=== PATIENT | male | born 1970 | race Native Hawaiian/Other Pacific Islander ===

== ENCOUNTER 2021-11-19 20:22 | Emergency (ER) | payer OTHER ==
[~2021-11-19] VITALS: Ht 177.8 cm; Wt 96.6 kg
[~2021-11-19 20:22] MED LIST: FISH OIL PO; MULVITA PO; Naprosyn500 MG PO; OMEP20ER PO; Veetids 500500 MG PO; Vitamin C100 M1 PO
[2021-11-19 23:49] LABS: BASOPHILS ABSOLUTE AUTO 0.06 K/mm3 (0.00-0.23); BASOPHILS PERCENT AUTO 1 % (0-2); EOSINOPHILS ABSOLUTE AUTO 0.01 K/mm3 (0.00-0.68); EOSINOPHILS PERCENT AUTO 0 % (0-6); Hematocrit 44.7 % (37.0-53.0); Hemoglobin 15.1 g/dL (13.5-17.5); IMMATURE GRAN ABSOLUTE AUTO 0.04 K/mm3 (0.00-0.10); IMMATURE GRAN PERCENT AUTO 0 % (0-1); LYMPHOCYTES ABSOLUTE AUTO 0.76 K/mm3 (0.84-5.20); LYMPHOCYTES PERCENT AUTO 6 % (21-46); MONOCYTES ABSOLUTE AUTO 0.81 K/mm3 (0.16-1.47); MONOCYTES PERCENT AUTO 6 % (4-13); Mean Corpuscular HGB 30.4 pg (26.0-34.0); Mean Corpuscular HGB Conc 33.8 g/dL (31.5-36.5); Mean Corpuscular Volume 90 fL (80-100); Mean Platelet Volume 9.9 fL (9.1-12.4); NEUTROPHILS ABSOLUTE AUTO 11.37 K/mm3 (1.96-9.15); NEUTROPHILS PERCENT AUTO 87 % (41-73); Platelet Count 251 K/mm3 (150-400); RDW Coefficient Variation 14.3 % (11.7-14.2); RDW Standard Deviation 47.3 fL (35.1-46.3); Red Blood Cell Count 4.96 M/mm3 (4.30-5.90); White Blood Cell Count 13.05 K/mm3 (4.00-11.30)
[2021-11-20 00:04] LABS: Albumin, Blood 3.8 g/dL (3.4-5.0); Bilirubin, Total 0.2 mg/dL (0.1-1.0); Bun/Creatinine Ratio 7.8 (12.0-20.0); Calcium, Blood 9.3 mg/dL (8.5-10.1); Creatinine, Blood 1.03 mg/dL (0.60-1.20); Globulin, Blood 3.8 g/dL (2.2-4.0); Potassium, Blood 4.1 mmol/L (3.5-5.5); Total Protein, Blood 7.6 g/dL (6.4-8.2)
[2021-11-20 00:56] LABS: Influenza A, PCR NEGATIVE (NEGATIVE); Influenza B, PCR NEGATIVE (NEGATIVE); Resp Syncytial Virus, PCR NEGATIVE (NEGATIVE); SARS-Cov-2 (COVID-19) PCR, MMC NEGATIVE (NEGATIVE)
[2021-11-20 01:46] LABS: Anti-Xa UFH, PHA Monitoring <0.10 IU/mL; International Normalized Ratio 1.04; Prothrombin Time Results 10.9 Sec (9.7-11.5)
== END 2021-11-20 01:35 | disposition home or self-care (01) ==
LOC: ER 20:22
PROVIDERS: Physician Assistant
DX: I74.3 Embolism and thrombosis of arteries of the lower extremities (principal); K21.9 Gastro-esophageal reflux disease without esophagitis; F17.200 Nicotine dependence, unspecified, uncomplicated; Z79.899 Other long term (current) drug therapy
CPT/HCPCS: 0241U; 36415; 75635; 80053; 85025; 85520; 85610; 93926; 93971; 96374; 96375; 99284-25; J1170; J1644; J2270; Q9967

== ENCOUNTER 2021-12-15 08:00 | Day surgery (SDC) | payer OTHER | END 2021-12-15 23:59 | disposition home or self-care (01) | LOC: WOUND 08:00 | DX: T81.31XA Disruption of external operation (surgical) wound, not elsewhere classified, initial encounter (principal); T86.822 Skin graft (allograft) (autograft) infection; I74.3 Embolism and thrombosis of arteries of the lower extremities; E78.5 Hyperlipidemia, unspecified | CPT/HCPCS: 99406; G0463 ==

== ENCOUNTER 2021-12-22 03:46 | Day surgery (SDC) | payer OTHER | END 2021-12-22 23:49 | LOC: WOUND 03:46 | DX: T81.31XA Disruption of external operation (surgical) wound, not elsewhere classified, initial encounter (principal); T86.822 Skin graft (allograft) (autograft) infection; T86.828 Other complications of skin graft (allograft) (autograft); I74.3 Embolism and thrombosis of arteries of the lower extremities; F17.210 Nicotine dependence, cigarettes, uncomplicated | CPT/HCPCS: 99406; G0463 ==

== ENCOUNTER 2021-12-29 02:36 | Day surgery (SDC) | payer OTHER | END 2021-12-31 23:38 | disposition home or self-care (01) | LOC: WOUND 02:36 | DX: T86.822 Skin graft (allograft) (autograft) infection (principal); T86.828 Other complications of skin graft (allograft) (autograft); T81.31XA Disruption of external operation (surgical) wound, not elsewhere classified, initial encounter; I74.3 Embolism and thrombosis of arteries of the lower extremities; F17.200 Nicotine dependence, unspecified, uncomplicated | CPT/HCPCS: 99406; A9270; G0463 ==

== ENCOUNTER 2022-01-05 01:25 | Day surgery (SDC) | payer OTHER | END 2022-01-05 23:35 | disposition home or self-care (01) | LOC: WOUND 01:25 | DX: T81.31XA Disruption of external operation (surgical) wound, not elsewhere classified, initial encounter (principal); T86.822 Skin graft (allograft) (autograft) infection; I74.3 Embolism and thrombosis of arteries of the lower extremities; F17.200 Nicotine dependence, unspecified, uncomplicated; Y83.2 Surgical operation with anastomosis, bypass or graft as the cause of abnormal reaction of the patient, or of later complication, without mention of misadventure at the time of the procedure | CPT/HCPCS: 99406; A9270; G0463 ==

== ENCOUNTER 2022-01-19 08:00 | Day surgery (SDC) | payer OTHER | END 2022-01-19 23:59 | disposition home or self-care (01) | LOC: WOUND 08:00 | DX: T86.822 Skin graft (allograft) (autograft) infection (principal); T81.31XA Disruption of external operation (surgical) wound, not elsewhere classified, initial encounter; T86.828 Other complications of skin graft (allograft) (autograft); I74.3 Embolism and thrombosis of arteries of the lower extremities; F17.200 Nicotine dependence, unspecified, uncomplicated | CPT/HCPCS: 99406; A9270; G0463 ==

== ENCOUNTER 2022-02-02 02:01 | Day surgery (SDC) | payer OTHER | END 2022-02-02 23:32 | disposition home or self-care (01) | LOC: WOUND 02:01 | DX: Z09 Encounter for follow-up examination after completed treatment for conditions other than malignant neoplasm (principal); I74.3 Embolism and thrombosis of arteries of the lower extremities; F17.200 Nicotine dependence, unspecified, uncomplicated | CPT/HCPCS: 99406; A9270; G0463 ==

== ENCOUNTER 2023-12-13 06:19 | Day surgery (SDC) | payer OTHER ==
[~2023-12-13] VITALS: Ht 177.8 cm; Wt 94.7 kg
[~2023-12-13 06:19] MED LIST changes: +Lactated Ringer's 1,000 ML IV ONE
[2023-12-13] MEDS ORDERED: Bupivacaine 0.5% Inj 50 ML Vial (NON CHARGE) ONE (07:03)
[2023-12-13] MEDS ORDERED: Ropivacaine 0.5% HCL/PF 5 MG/ML 30ML Vial ONE (07:04)
[2023-12-13] MEDS ORDERED: Lactated Ringer's 1,000 ML IV ONE (07:05)
[2023-12-13] MEDS ORDERED: propofoL 20 ML IV ONE ×2 (07:10→07:42)
[2023-12-13] MEDS ORDERED: FentaNYL Citrate 50 MCG/ML 2 ML Injection ONE (07:10)
[2023-12-13] MEDS ORDERED: ELIQUIS5 M2 PO (07:13)
[2023-12-13] MEDS ORDERED: Ondansetron HCl 2 MG / ML 2ML Vial ONE (07:13)
[2023-12-13] MEDS ORDERED: CeFAZolin Sodium 2,000 MG VIAL ONE (07:16)
[2023-12-13] MEDS ORDERED: NS 50 ML IV ONE (07:16)
[2023-12-13] MEDS ORDERED: Aspir 8181 MG PO (07:23)
[2023-12-13] MEDS ORDERED: GABA400 PO (07:24)
[2023-12-13] MEDS ORDERED: ATOR40TA PO (07:24)
[2023-12-13] MEDS ORDERED: Robaxin750 MG PO (07:25)
[2023-12-13] MEDS ORDERED: Midazolam HCl 1MG / ML 2ML Vial ONE (07:28)
[2023-12-13] MEDS ORDERED: Lidocaine HCl 1% 30 ML SDV XX ONE (07:52)
[2023-12-13 08:40] VITALS: BP 123/80
== END 2023-12-13 08:57 | disposition home or self-care (01) ==
LOC: ORSCSDS 06:19
PROVIDERS: Surgery
PROC: 0JB70ZZ Excision of Back Subcutaneous Tissue and Fascia, Open Approach (ICD-10-PCS; principal; 2023-12-13 07:30)
DX: D17.1 Benign lipomatous neoplasm of skin and subcutaneous tissue of trunk (principal); E78.5 Hyperlipidemia, unspecified; Z79.01 Long term (current) use of anticoagulants; Z79.82 Long term (current) use of aspirin; Z79.899 Other long term (current) drug therapy; F17.210 Nicotine dependence, cigarettes, uncomplicated
CPT/HCPCS: 88304; J0690; J2250; J2405; J2704; J2795; J3010; J7120